=== PATIENT | male | born 1935 | race Caucasian/White ===

== ENCOUNTER 2017-10-21 18:06 | Emergency (ER) | payer OTHER ==
[~2017-10-21] VITALS: Ht 175.3 cm; Wt 84.0 kg
[~2017-10-21 18:06] MED LIST: AMIO200T PO; AMIO400T2 PO; ASPI81TA82 PO; DABI150 PO; FERR324T4 PO; METO50CR PO; OMEP40CA2 PO; PROS5TAB2 PO; TAMS0.4C67 PO; TOLT4 PO; VITA100020 SL
[2017-10-21 18:13] VITALS: BP 148/68; PULSE 74; RESP 16; TEMP 97.7; O2SAT 95
[2017-10-21 18:36] VITALS: BP 148/68; PULSE 74; RESP 16; TEMP 97.7; O2SAT 95
--- NOTE | 2017-10-21 19:19 | PD ---
HPI Chief Complaint: Fall Time Seen by Provider: 18:51 Travel History International Travel<30 days: No Contact w/Intl Traveler<30days: No Traveled to known affect area: No History of Present Illness HPI 82yo M presents to the ED with multiple complaints. [place] and thinks he tripped and fell and hit his head and right arm. Thinks he may have LOC. Pt had avulsion to right elbow and ripped the skin off but started having redness and pain around the open wound now. It has been over 24 hours since the fall. Pt with right shoulder and elbow pain. Denies any fever , chest pain, n/v, abdominal pain, focal weakness or numbness. Denies any headache unless I press on the bump in right forehead. Pt said he felt sob after the fall. Said he has been feeling sob when he walks up the stairs for the last 2-3 days. Pt had fluid in lungs before and had finished a 30 day course of furosemide as instructed. His started giving him 20mg of furosemide in last few days because he was having sob and he feels better after the furosemide. Denies sob at rest. Pt has also had episodes of dizziness and had CT brain with and without contrast a few weeks ago that were negative and has a neurology appointment as outpatient. PFSH Past Medical History Hx Anticoagulant Therapy: Yes (asa) Arthritis: Yes Atrial Fibrillation: Yes (Flutter) Autoimmune Disease: No Heart Rhythm Problems: Yes (AFLUTTER) Cancer: Yes (BLADDER CA; MELANOMA FACE) Cardiovascular Problems: Yes (pacemaker) Diabetes: No Diminished Hearing: Yes (BILATERAL HEARING AIDS) Endocrine: No GERD: Yes Genitourinary: Yes (bladdar cancer ) Hepatitis: No Hiatal Hernia: No Hypertension: Yes Immune Disorder: No Medical other: Yes (GERD; BPH; PACEMAKER) Musculoskeletal: No Neurologic: No Psychiatric: No Reproductive: No Respiratory: No Thyroid Disease: No Tetanus Vaccination: < 5 Years Influenza Vaccination: Yes PNEUMOCCOCAL Vaccine (Year): 2 Past Surgical History Surgical History: No Previous Surgery Abdominal Surgery: Yes (91' UMBILICAL HERNIA REPAIR) Cardiac Surgery: Yes (CARDIAC ABLATION 08/21 ; 09/18 INSERTION PACEMAKER) Genitourinary Surgery: Yes (CYSTOSCOPY BLADDER CANCER-CYSTOSCOPY 05/20) Pacemaker: Yes (ST. LEXX) Other Surgery: Yes Social History Alcohol Use: No Tobacco Use: No Substance Use: No Allergies-Medications (Allergen,Severity, Reaction): Coded Allergies: No Known Allergies (Unverified Adverse Reaction, Unknown, 10/21/17) Reported Meds & Prescriptions Reported Meds & Active Scripts Active Reported Vitamin B-12 (Cyanocobalamin) 1,000 Mcg Tab 1,000 Mcg PO DAILY Tolterodine (Tolterodine Tartrate) 2 Mg Tab 2 Mg PO DAILY Atorvastatin (Atorvastatin Calcium) 20 Mg Tab 20 Mg PO HS Levothyroxine (Levothyroxine Sodium) 50 Mcg Tab 50 Mcg PO DAILY Omeprazole 20 Mg Tab 20 Mg PO DAILY Metoprolol Succinate ER 24 HR (Metoprolol Succinate) 50 Mg Tab 50 Mg PO BID Finasteride 5 Mg Tab 5 Mg PO DAILY Do not crush. Ferrous Sulfate 325 Mg (65 Mg Iron) Tablet 325 Mg PO DAILY Aspirin Children's (Aspirin) 81 Mg Chew 81 Mg CHEW DAILY Review of Systems Except as stated in HPI: all other systems reviewed are Neg Physical Exam Narrative GENERAL: 82yo M not in distress. SKIN: Focused skin assessment warm/dry. HEAD: Small right forehead swelling ttp. EYES: Pupils equal and round at 3mm bilaterally. EOMI. ENT: No nasal bleeding or discharge. Mucous membranes pink and moist. NECK: No midline cervical ttp. CARDIOVASCULAR: Regular rate and rhythm. No murmur appreciated. RESPIRATORY: No accessory muscle use. Bilateral basilar crackles. GASTROINTESTINAL: Abdomen soft, non-tender, nondistended. MUSCULOSKELETAL: Right shoulder: +TTP right medial glenohumeral joint. Good range of motion. Sensation intact. Distal pulses intact. Right elbow: +Avulsion 3cm by 3cm that is not actively bleeding with mild erythema and tenderness around the avulsion. No purulent discharge. Sensation intact. Distal pulses intact. NEUROLOGICAL: Awake and alert. No obvious cranial nerve deficits. Motor grossly within normal limits. Normal speech. PSYCHIATRIC: Appropriate mood and affect; insight and judgment normal. Data Data Last Documented VS Vital Signs Date Time Temp Pulse Resp B/P (MAP) Pulse Ox O2 Delivery O2 Flow Rate FiO2 10/21/17 19:45 97 Room Air 10/21/17 18:36 97.7 74 16 148/68 (94) Orders Orders Complete Blood Count With Diff (10/21/17 19:06) Basic Metabolic Panel (Bmp) (10/21/17 19:06) B-Type Natriuretic Peptide (10/21/17 19:06) Troponin I (10/21/17 19:06) Electrocardiogram (10/21/17 19:06) Chest, Single Ap (10/21/17 19:06) Ct Brain W/O Iv Contrast(Rout) (10/21/17 ) Shoulder, Limited(2vws) (10/21/17 ) Elbow, Limited (Ap&Lat) (10/21/17 ) Cephalexin (Keflex) (10/21/17 20:30) Acetaminophen (Tylenol) (10/21/17 20:30) Tetanus/Diphtheria Tox Adult (Tetanus/Di (10/21/17 21:15) Labs Laboratory Tests Test 10/21/17 19:58 White Blood Count 6.9 TH/MM3 Red Blood Count 3.34 MIL/MM3 Hemoglobin 11.5 GM/DL Hematocrit 33.5 % Mean Corpuscular Volume 100.3 FL Mean Corpuscular Hemoglobin 34.4 PG Mean Corpuscular Hemoglobin Concent 34.3 % Red Cell Distribution Width 14.8 % Platelet Count 166 TH/MM3 Mean Platelet Volume 7.5 FL Neutrophils (%) (Auto) 75.5 % Lymphocytes (%) (Auto) 12.5 % Monocytes (%) (Auto) 7.3 % Eosinophils (%) (Auto) 4.1 % Basophils (%) (Auto) 0.6 % Neutrophils # (Auto) 5.2 TH/MM3 Lymphocytes # (Auto) 0.9 TH/MM3 Monocytes # (Auto) 0.5 TH/MM3 Eosinophils # (Auto) 0.3 TH/MM3 Basophils # (Auto) 0.0 TH/MM3 CBC Comment DIFF FINAL Differential Comment Blood Urea Nitrogen 24 MG/DL Creatinine 1.30 MG/DL Random Glucose 86 MG/DL Calcium Level 8.2 MG/DL Sodium Level 140 MEQ/L Potassium Level 4.2 MEQ/L Chloride Level 105 MEQ/L Carbon Dioxide Level 28.1 MEQ/L Anion Gap 7 MEQ/L Estimat Glomerular Filtration Rate 53 ML/MIN Troponin I 0.02 NG/ML B-Type Natriuretic Peptide 271 PG/ML MDM Medical Decision Making Medical Screen Exam Complete: Yes Emergency Medical Condition: Yes Interpretation(s) EKG: Aflutter at 71bpm. Normal axis. Differential Diagnosis ICH vs. Pleural effusion vs. arrhythmia vs. cellulitis vs. fracture vs. contusion Narrative Course 82yo M here with multiple complaints. Pt is here for evaluation for right elbow redness and pain after fall yesterday as well as right shoulder pain and possible LOC after hitting his head. Pt denies any symptoms prior to the fall and thinks he trip and fell. EKG showed aflutter and our record showed that pt has a history of afib/aflutter. Pt had ablation with Dr. Nicoel 2015. Pt was on pradaxa but was taken off due to bleeding while on it. Base on risks vs. benefits, pt was taken off anticoagulation and is only on aspirin. Pt follows closely with Dr. Olivas and he is aware that pt is back in aflutter and had an echo 3 weeks ago. Also has follow up appointment with Dr. Nicole. CXR, xray right shoulder and elbow unremarkable. CT brain negative. Labs reviewed, no leukocytosis. H/H 11.5/33.5 which is at baseline. BNP mildly elevated at 271. Troponin negative at 0.02. BUN mildly elevated at 24. Pt can orally hydrate and advised to do so. It has been over 24 hours since he fell and pt has been acting like himself. Tetanus updated. Right elbow wound cleaned and wrapped. Pt given keflex and acetaminophen to cover early cellulitis. Return precautions give. Diagnosis Primary Impression: Fall Qualified Codes: W19.XXXA - Unspecified fall, initial encounter Additional Impression: Cellulitis Qualified Codes: L03.113 - Cellulitis of right upper limb Patient Instructions: General Instructions Departure Forms: Tests/Procedures Additional Instructions: Please follow up with your design engineer products in 1-2 days. Return to the ED if symptoms worsen. Med/Other Pt SpecificInfo: Prescription(s) given Scripts Acetaminophen (Tylenol) 325 Mg Tab 325 MG PO Q4H Y for PAIN SCALE 1 TO 4, #20 TAB 0 Refills Prov: Gisel Solis DO 10/21/17 Cephalexin (Keflex) 500 Mg Cap 500 MG PO Q12H for Infection for 7 Days, #14 CAP 0 Refills Prov: Gisel Solis DO 10/21/17 Disposition: 01 DISCHARGE HOME Condition: Stable Gisel Solis DO Oct 21, 2017 19:19
--- NOTE | 2017-10-21 19:50 | RADRPT ---
EXAM DATE/TIME: 10/21/2017 19:17 [facility] COMPARISON: No previous studies available for comparison. INDICATIONS : Trauma due to fall. MEDICAL HISTORY : Carcinoma, bladder. A-fib SURGICAL HISTORY : Pacemaker. Intestinal surgery. ENCOUNTER: Initial ACUITY: 2 days PAIN SCORE: 5/10 LOCATION: Right upper extremity Shoulder. FINDINGS: There is no fracture or subluxation of the right shoulder. Osteoarthritis present, moderate of the ac romioclavicular joint and mild of the glenohumeral joint. Pre-graphic appearance of the soft tissues within normal limits. CONCLUSION: Intact right shoulder. Mild to moderate degenerative changes. Tae Orr MD on October 21, 2017 at 19:47 Board Certified Radiologist. This report was verified electronically.
--- NOTE | 2017-10-21 19:51 | RADRPT ---
EXAM DATE/TIME: 10/21/2017 19:17 [facility] COMPARISON: No previous studies available for comparison. INDICATIONS : Short of breath. MEDICAL HISTORY : Carcinoma, bladder. A-fib SURGICAL HISTORY : Pacemaker. Intestinal surgery. ENCOUNTER: Initial ACUITY: 2 days PAIN SCORE: 0/10 LOCATION: Bilateral chest FINDINGS: A single view of the chest demonstrates the lungs to be symmetrically aerated without evidence of mas s, infiltrate or effusion. The cardiomediastinal contours are unremarkable. Osseous structures are intact. Left-sided cardiac pacer with 2 leads again noted. CONCLUSION: No acute cardiopulmonary disease demonstrated. Tae Orr MD on October 21, 2017 at 19:49 Board Certified Radiologist. This report was verified electronically.
--- NOTE | 2017-10-21 19:51 | RADRPT ---
EXAM DATE/TIME: 10/21/2017 19:17 [facility] COMPARISON: No previous studies available for comparison. INDICATIONS : Trauma due to fall. MEDICAL HISTORY : Carcinoma, bladder. A-fib. SURGICAL HISTORY : Pacemaker. Intestinal surgery. ENCOUNTER: Initial ACUITY: 2 days PAIN SCORE: 5/10 LOCATION: Right upper extremity elbow. FINDINGS: The right elbow is intact. No subluxation. There is mild osteoarthritis. No joint effusion. Large ent hesophyte of the triceps insertion. CONCLUSION: Intact right elbow. Chronic/degenerative changes. Tae Orr MD on October 21, 2017 at 19:48 Board Certified Radiologist. This report was verified electronically.
[2017-10-21] MEDS ORDERED: ASPI81CH7 CHEW (19:52)
[2017-10-21] MEDS ORDERED: FINA5TAB2 PO (19:52)
[2017-10-21] MEDS ORDERED: METO1TAB9 PO (19:52)
[2017-10-21] MEDS ORDERED: FERR325T18 PO (19:52)
[2017-10-21] MEDS ORDERED: OMEP20TA93 PO (20:00)
--- NOTE | 2017-10-21 20:02 | RADRPT ---
EXAM DATE/TIME: 10/21/2017 19:34 [facility] COMPARISON: No previous studies available for comparison. INDICATIONS : Trauma; fall. RADIATION DOSE: 52.56 CTDIvol (mGy) MEDICAL HISTORY : Cardiovascular disease. Carcinoma, bladder. SURGICAL HISTORY : Pacemaker. ENCOUNTER: Initial ACUITY: 1 day PAIN SCALE: 2/10 LOCATION: cranial TECHNIQUE: Multiple contiguous axial images were obtained of the head. Using automated exposure control and adj ustment of the mA and/or kV according to patient size, radiation dose was kept as low as reasonably a chievable to obtain optimal diagnostic quality images. DICOM format image data is available electro nically for review and comparison. FINDINGS: CEREBRUM: The ventricles are normal for age. No evidence of midline shift, mass lesion, hemorrhage or acute in farction. No extra-axial fluid collections are seen. POSTERIOR FOSSA: The cerebellum and brainstem are intact. The 4th ventricle is midline. The cerebellopontine angle i s unremarkable. EXTRACRANIAL: The visualized portion of the orbits is intact. SKULL: The calvaria is intact. No evidence of skull fracture. CONCLUSION: Negative noncontrast head CT. Tae Orr MD on October 21, 2017 at 20:00 Board Certified Radiologist. This report was verified electronically.
[2017-10-21] MEDS ORDERED: ATOR20TA15 PO (20:08)
[2017-10-21] MEDS ORDERED: TOLT1TAB16 PO (20:08)
[2017-10-21] MEDS ORDERED: VITA10002 PO (20:08)
[2017-10-21] MEDS ORDERED: LEVO50TA4 PO (20:08)
[2017-10-21 20:15] LABS: AUTOMATED NEUTROPHIL # 5.2 TH/MM3 (1.8-7.7); BASOPHIL % 0.6 % (0.0-2.0); EOSINOPHIL # 0.3 TH/MM3 (0-0.4); EOSINOPHIL % 4.1 % (0.0-4.0); HEMATOCRIT 33.5 % (39.0-51.0); HEMOGLOBIN 11.5 GM/DL (13.0-17.0); LYMPH % 12.5 % (9.0-44.0); LYMPHOCYTE # 0.9 TH/MM3 (1.0-4.8); MEAN CELL VOLUME 100.3 FL (80.0-100.0); MEAN CORPUSCULAR HEMOGLOBIN 34.4 PG (27.0-34.0); MEAN CORPUSCULAR HGB CONC 34.3 % (32.0-36.0); MEAN PLATELET VOLUME 7.5 FL (7.0-11.0); MONO % 7.3 % (0.0-8.0); MONOCYTE # 0.5 TH/MM3 (0-0.9); NEUT % 75.5 % (16.0-70.0); PLATELET COUNT 166 TH/MM3 (150-450); RED BLOOD COUNT 3.34 MIL/MM3 (4.50-5.90); RED CELL DISTRIBUTION WIDTH 14.8 % (11.6-17.2); WHITE BLOOD COUNT 6.9 TH/MM3 (4.0-11.0)
[2017-10-21 20:20] LABS: BICARBONATE 28.1 MEQ/L (21.0-32.0); CALCIUM 8.2 MG/DL (8.5-10.1)
[2017-10-21 20:24] LABS: CREATININE 1.3 MG/DL (0.60-1.30)
[2017-10-21 20:28] LABS: TROPONIN I 0.02 NG/ML (0.02-0.05)
[2017-10-21] MEDS ORDERED: CEPHALEXIN MONOHYDRATE 500 MG CAP PO ONE (20:30)
[2017-10-21] MEDS ORDERED: ACETAMINOPHEN 325 MG TAB PO ONE (20:30)
[2017-10-21 21:03] VITALS: BP 135/65; PULSE 78; RESP 20; O2SAT 93
[2017-10-21] MEDS ORDERED: CEPH-460 PO (21:09)
[2017-10-21] MEDS ORDERED: TYLE325T PO (21:09)
[2017-10-21] MEDS ORDERED: TETANUS/DIPHTHERIA TOXOID ADULT 0.5 ML VIAL IM ONE (21:15)
--- NOTE | 2017-10-22 15:46 | EKG ---
Date Performed: 10/21/2017 Time Performed: 19:14:35 PTAGE: 82 years EKG: ATRIAL FLUTTER/TACHYCARDIA NONSPECIFIC T-WAVE ABNORMALITY ABNORMAL RHYTHM ECG Compared to PREVIOUS TRACING , the patient is now in atrial flutter. PREVIOUS TRACIN08/21/2015 10. 02 DOCTOR: Janet Vasquez Interpretating Date/Time 10/22/2017 15:44:48
== END 2017-10-21 21:29 | disposition home or self-care (01) ==
LOC: PHED 18:06
DX: L03.113 Cellulitis of right upper limb (principal); R06.02 Shortness of breath; R42 Dizziness and giddiness; Z79.82 Long term (current) use of aspirin; I49.8 Other specified cardiac arrhythmias; K21.9 Gastro-esophageal reflux disease without esophagitis; I10 Essential (primary) hypertension; N40.0 Benign prostatic hyperplasia without lower urinary tract symptoms; W18.09XA Striking against other object with subsequent fall, initial encounter; Y92.39 Other specified sports and athletic area as the place of occurrence of the external cause; Z23 Encounter for immunization; Z95.0 Presence of cardiac pacemaker
CPT/HCPCS: 70450; 71045; 73030; 73070; 80048; 83880; 84484; 85025; 90471; 90714; 93005

== ENCOUNTER 2017-12-15 09:00 | Day surgery (SDC) | payer OTHER ==
[~2017-12-15] VITALS: Ht 175.3 cm; Wt 81.8 kg
[~2017-12-15 09:00] MED LIST changes: -AMIO200T PO; -AMIO400T2 PO; +ASPI81CH7 CHEW; -ASPI81TA82 PO; +ATOR20TA15 PO; +CEPH-460 PO; -DABI150 PO; -FERR324T4 PO; +FERR325T18 PO; +FINA5TAB2 PO; +LEVO50TA4 PO; +METO1TAB9 PO; -METO50CR PO; +OMEP20TA93 PO; -OMEP40CA2 PO; -PROS5TAB2 PO; +SODIUM CHLOR 0.9% 1000 ML IV SCH; -TAMS0.4C67 PO; +TOLT1TAB16 PO; -TOLT4 PO; +TYLE325T PO; +VITA10002 PO; -VITA100020 SL
[2017-12-15 09:25] VITALS: BP 148/77; PULSE 70; RESP 18; TEMP 97.5; O2SAT 95
[2017-12-15] MEDS ORDERED: FURO1TAB62 PO (09:34)
[2017-12-15 09:39] LABS: AUTOMATED NEUTROPHIL # 4.2 TH/MM3 (1.8-7.7); BASOPHIL # 0.1 TH/MM3 (0-0.2); BASOPHIL % 1.4 % (0.0-2.0); EOSINOPHIL # 0.3 TH/MM3 (0-0.4); HEMATOCRIT 33.9 % (39.0-51.0); LYMPH % 11.1 % (9.0-44.0); LYMPHOCYTE # 0.6 TH/MM3 (1.0-4.8); MEAN CELL VOLUME 99.9 FL (80.0-100.0); MEAN CORPUSCULAR HEMOGLOBIN 35.3 PG (27.0-34.0); MEAN CORPUSCULAR HGB CONC 35.3 % (32.0-36.0); MEAN PLATELET VOLUME 8.6 FL (7.0-11.0); MONO % 8.4 % (0.0-8.0); MONOCYTE # 0.5 TH/MM3 (0-0.9); NEUT % 74.1 % (16.0-70.0); PLATELET COUNT 146 TH/MM3 (150-450); RED CELL DISTRIBUTION WIDTH 14.8 % (11.6-17.2); WHITE BLOOD COUNT 5.7 TH/MM3 (4.0-11.0)
[2017-12-15] MEDS ORDERED: MIDAZOLAM HCL 2 MG/2 ML VIAL ONE (11:12)
--- NOTE | 2017-12-15 11:55 | PD.RAD ---
Post CT Procedure Prog Note Pre Procedure Diagnosis: (1) Anemia Post Procedure Diagnosis: (1) Anemia Procedure Date: Dec 15, 2017 Supervising Radiologist: Tae Hernandez Anesthesia: Conscious Sedation Plan of Activity Patient to Unit: [facility] Patient Condition: Good See PACS Report for procedural detail/treatment Biopsy Imaging Guidance: CT Side: Left Biopsy Procedure: Bone Marrow Site: posterior iliac bone. Specimen: Core Biopsy Plan to [facility] for monitoring. Tae Hernandez MD Dec 15, 2017 11:55
[2017-12-15] MEDS ORDERED: NALOXONE HCL 0.4 MG/ML AMP ONE (11:56)
--- NOTE | 2017-12-15 12:03 | RADRPT ---
EXAM DATE: 12/15/2017 12:02 PM EDT AGE/SEX: 82 years / Male INDICATIONS: Anemia, macrocytic cytosis and monoclonal gammopathy. CLINICAL DATA: This is the patient's initial encounter. Patient reports that signs and symptoms have been present for 1 day and indicates a pain score of 0/10. MEDICAL/SURGICAL HISTORY: Cardiovascular disease. Carcinoma, prostatic. Hypertension. Pacemak er. Cardiac ablation, stomach surgery. COMPARISON: No prior exams available for comparison. BIOPSY SITE: Left pelvic MEDICATION(S): 3 mg midazolam (Versed) IV 150 mcg fentanyl (Sublimaze) IV DEVICE(S): 11 gauge Bone marrow biopsy needle One . . PROCEDURE: CT guided Left pelvic biopsy Prior to the procedure informed consent was obtained. Any appropriate prior imaging studies were rev iewed. Using automated exposure control and adjustment of the mA and/or kV according to patient size , radiation dose was kept as low as reasonably achievable to obtain optimal diagnostic quality images . DICOM format image data is available electronically for review and comparison. The site was prepped in a sterile fashion. Full sterile technique was used, including cap, mask, juan rile gloves and gown and a large sterile sheet. Hand hygiene and 2% chlorhexidine and/or betadine/al cohol prep was utilized per protocol for cutaneous antisepsis. The skin and subcutaneous tissues wer e infiltrated with local anesthetic solution. With CT guidance the left posterior iliac bone was localized. Biopsy was performed using the prescrib ed needle as above. Following biopsy marrow aspiration was performed with repeat puncture. Adequate hemostasis was obtained with compression at the puncture site. Conscious sedation was performed with the prescribed dosages and duration as above in the presence of an independent trained radiology nurse to assist in the monitoring of the patient. EKG and oximetry remained stable throughout the procedure. The patient tolerated the procedure well and there were no complications. The patient was sent to Radiology Outpatient Unit in stable condition. CONCLUSION: 1. Uncomplicated CT guided bone marrow aspirate. 2. Uncomplicated CT guided bone marrow biopsy. Electronically signed by: Tae Hernandez MD 12/15/2017 12:02 PM EDT
[2017-12-15 12:10] VITALS: BP 113/76; PULSE 76; RESP 18; TEMP 97.6; O2SAT 97
[2017-12-15 12:25] VITALS: BP 124/71; PULSE 85; RESP 16; O2SAT 96
[2017-12-15 12:55] VITALS: BP 104/49; PULSE 85; RESP 16; O2SAT 96
[2017-12-15 13:25] VITALS: BP 115/56; PULSE 86; RESP 18; O2SAT 93
== END 2017-12-15 14:20 | disposition home or self-care (01) ==
LOC: HRAD 09:00 → HRIP 09:04 → HRAD 14:20
PROVIDERS: ATTEND Internal Medicine
DX: D64.9 Anemia, unspecified (principal); D47.2 Monoclonal gammopathy; D69.6 Thrombocytopenia, unspecified; M85.88 Other specified disorders of bone density and structure, other site; D75.89 Other specified diseases of blood and blood-forming organs
CPT/HCPCS: 38222; 77012; 85025; 85097; 88184; 88185; 88237; 88264; 88280; 88305; 88311; 88313; 99152; 99153; C1830; J2250; J2310; J3010; J7030